=== PATIENT | male | born 1995 | race Hispanic/Latino ===

== ENCOUNTER 2022-08-30 04:46 | Emergency (ER) | payer SELFPAY ==
[2022-08-30] MEDS ORDERED: CEFAZOLIN SODIUM 1 GM/VIAL ONE ×2 (04:54→05:07)
[2022-08-30] MEDS ORDERED: Ringers Lactate 1,000 ML IV ONE ×2 (04:55→06:23)
[2022-08-30] MEDS ORDERED: NA CHLORIDE 0.9% 100 ML IV ONE (04:55)
[2022-08-30] MEDS ORDERED: HYDROMORPHONE HCL 0.5 MG/0.5 ML INJ ONE (04:55)
[2022-08-30] MEDS ORDERED: TDAP (DIPHTH,PERTUSS(ACELL),TET VAC) 0.5 ML VIAL IMVAC ONE (04:56)
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
[2022-08-30] MEDS ORDERED: CEFEPIME 1 GM/VIAL ONE (05:05)
[2022-08-30] MEDS ORDERED: HYDROMORPHONE HCL 1 MG/ML INJ ONE (05:08)
[2022-08-30] MEDS ORDERED: KETAMINE HCL 500 MG/5 ML VIAL ONE (05:31)
[2022-08-30] MEDS ORDERED: FENTANYL CITR 100 MCG/2 ML ONE (06:18)
[2022-08-30] MEDS ORDERED: NA CHLORIDE 0.9% 50 ML IV ONE (06:18)
[2022-08-30] MEDS ORDERED: ROCURONIUM 50 MG/5 ML VIAL IV ONE (06:22)
[2022-08-30] MEDS ORDERED: MIDAZOLAM HCL 2 MG/2 ML INJ ONE ×2 (07:11→07:15)
[2022-08-30 07:55] VITALS: TEMP 97.6
[2022-08-30 07:57] VITALS: BP 173/116; O2SAT 98
--- NOTE | 2022-08-30 09:05 | RAD REPORT ---
EXAM DESCRIPTION: RAD - Chest Single View - 08/30/2022 6:58 am CLINICAL HISTORY: intubation Chest pain. COMPARISON: No comparisons FINDINGS: Portable technique limits examination quality. Tip of the endotracheal tube is above the leslye. Enteric tube descends into the stomach. The lungs a ppear grossly clear.No displaced fractures.
== END 2022-08-30 07:25 | disposition short-term general hospital (02) ==
LOC: ER 04:46
DX: T20.20XA Burn of second degree of head, face, and neck, unspecified site, initial encounter (principal); T22.20XA Burn of second degree of shoulder and upper limb, except wrist and hand, unspecified site, initial encounter; Z23 Encounter for immunization
CPT/HCPCS: 31500; 71045; 90471; 99285; J0690; J0692; J1170; J2250; J3010; J7120